=== PATIENT | female | born 1930 | race Caucasian/White ===

== ENCOUNTER 2017-02-27 09:54 | Emergency (ER) | payer OTHER ==
[~2017-02-27] VITALS: Ht 149.9 cm; Wt 63.5 kg
[~2017-02-27 09:54] MED LIST: AUGMENTIN 875 M1 TAB PO; NAPROSYN375 MG PO; TESSALON PERLE100 MG PO; TRAMADOL50 MG PO
[2017-02-27] MEDS ORDERED: CAPTOPRIL25 M1 PO (10:00)
[2017-02-27] MEDS ORDERED: CARVEDILOL3.125 M1 PO (10:00)
[2017-02-27] MEDS ORDERED: PRAVASTATIN SOD40 M2 PO (10:01)
--- NOTE | 2017-02-27 10:44 | ED AMS/SEIZURE/WEAK/DIZZY ---
History of Present Illness General Chief Complaint: Syncope and Near-Syncope Stated Complaint: NIC NEAR SYNCOPAL Source: patient, old records, EMS Exam Limitations: no limitations Vital Signs & Intake/Output Vital Signs & Intake/Output Vital Signs Date Time Temp Pulse Resp B/P B/P Pulse O2 O2 Flow FiO2 Mean Ox Delivery Rate 02/27 1403 96.4 80 18 135/63 92 Room Air 02/27 1158 96.7 77 18 135/63 93 Room Air 02/27 1013 95 02/27 0959 96.2 84 18 165/82 94 Room Air Allergies Coded Allergies: codeine (VOMITING 02/27/17) zolpidem (GI DISTRESS 02/27/17) Reconcile Medications Captopril 25 MG TABLET 1 TAB PO BID HEART (Reported) Carvedilol 3.125 MG TABLET 1 TAB PO BID HEART (Reported) Pravastatin Sodium 40 MG TABLET 1 TAB PO 1200 CHOLESTEROL (Reported) Triage Note: 86 YO FEMALE NIC FROM HOME. PT STATES SHE WAS BENDING OVER TO FEED HER CAT AND BECAME DIZZY AND NAUSEOUS. PT STATES SHE DID NOT FALL BUT HIT HER ARM ON A RAIL, NOTED WITH SMALL SKIN ABRASION TO R FOREARM, BLEEDING CONTROLLED. PT ALERT AND ORIENTED X4. Triage Nurses Notes Reviewed? yes HPI: Patient presents for evaluation of a near syncopal episode that occurred while at home just prior to arrival. Patient states she was feeding her cat and had just picked up the cat's bowl (the bowl is rather heavy) when she felt a spinning dizziness and the feeling that she was going to faint. She grabbed a countertop and was able to make it to a chair. She then called a nurse who was unable to evaluate her. She was instructed to go to the emergency department by the nurse. Patient states she feels well at present. She denies loss of consciousness. She did scrape the right side of her wrist. Past History Travel History Traveled to [place] past 21 day No Medical History Any Pertinent Medical History? 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 No Review of Systems Review of Systems Constitutional: Reports: no symptoms. EENTM: Reports: no symptoms. Respiratory: Reports: no symptoms. Cardiovascular: Reports: no symptoms. GI: Reports: no symptoms. Genitourinary: Reports: no symptoms. Musculoskeletal: Reports: no symptoms. Skin: Reports: see HPI. Neurological/Psychological: Reports: no symptoms. Hematologic/Endocrine: Reports: no symptoms. Immunologic/Allergic: Reports: no symptoms. All Other Systems: Reviewed and Negative Physical Exam Physical Exam General Appearance: SEE BELOW Comments: Gen.: Well-nourished, well-developed, no acute respiratory distress. Head: Normocephalic, atraumatic. Eyes: Normal inspection bilaterally Ears: Normal inspection bilaterally Nose: Normal inspection Throat/mouth : Moist mucosa Face: No droop Neck: Supple, full range of motion, no goiter, no JVD Heart: Regular rate and rhythm, no murmurs rubs or gallops Lungs: Clear to auscultation bilaterally with normal air entry Chest: Nontender Back: Normal range of motion Abdomen: Soft, nontender, nondistended, normal bowel sounds Extremities: Normal range of motion grossly, equal radial pulses, no cyanosis clubbing or edema Neurologic: Cranial nerves grossly intact, speech is clear, no focal neurologic deficits noted Skin: warm and dry Psychiatric: Calm, cooperative, no apparent delusions or hallucinations Core Measures ACS in differential dx? No CVA/TIA Diagnosis: No Severe Sepsis Present: No Septic Shock Present: No Progress Differential Diagnosis: arrythmia, anemia, CVA/stroke, dehydration, electrolyte imbalance, hypoglycemia, SINUS RHYTHM WITH A VENTRICULAR PACER AND LEFT BUNDLE BRANCH PATTERN. Plan of Care: Orders Procedure Date/time Status URINALYSIS 02/27 1109 Complete Saline Lock 02/27 1042 Active MISTAKE 02/27 1042 Active Telemetry/Employee Welfare Manager 02/27 1042 Active THYROID STIMULATING HORMONE 02/27 1042 Complete TROPONIN LEVEL 02/27 1042 Complete COMPREHENSIVE METABOLIC PANEL 02/27 1042 Complete CBC WITHOUT DIFFERENTIAL 02/27 1042 Complete EKG 02/27 0954 Active Laboratory Tests 02/27/17 1109: Urinalysis LIGHT H, Urine Color YEL, Urine Clarity CLEAR, Urine pH 6.5, Ur Specific Baldwin 1.010, Urine Protein NEG, Urine Ketones NEG, Urine Nitrite NEG, Urine Bilirubin NEG, Urine Urobilinogen 0.2, Ur Leukocyte Esterase NEG, Ur Microscopic SEDIMENT EXAMINED, Urine RBC 5-10 H, Urine WBC 3-5 H, Ur Epithelial Cells MOD H, Urine Bacteria MOD H, Urine Hemoglobin SMALL H, Urine Glucose NEG 02/27/17 1100: Anion Gap 12, Estimated GFR > 60, BUN/Creatinine Ratio 32.0 H, Glucose 101 H, Calcium 10.3 H, Total Bilirubin 0.6, AST 25, ALT 23, Alkaline Phosphatase 84, Troponin I 0.02, Total Protein 7.2, Albumin 3.7, Globulin 3.5, Albumin/Globulin Ratio 1.1, TSH 3.230, CBC w Diff MAN DIFF ORDERED, RBC 3.72 L, MCV 95.4, MCH 31.5 H, RDW 16.4 H, MPV 8.5, Gran % 45.6, Lymphocytes % 27.9, Monocytes % 21.0 H, Eosinophils % 4.5, Basophils % 1.0, Absolute Granulocytes 1.7, Absolute Lymphocytes 1.0 L, Absolute Monocytes 0.8 H, Absolute Eosinophils 0.2, Absolute Basophils 0, Platelet Estimate ADEQUATE, Hypochromic-Microcytic 1+, Anisocytosis 1+, PUBS MCHC 33.0 Diagnostic Imaging: Discussed w/RAD: Radiology Read. Radiology Impression: PATIENT: NICA ESPARZA PRESENT AGE: 86 PATIENT ACCOUNT NO: [id number] : 32 LOCATION: [facility] ORDERING PHYSICIAN: DIMITRY BARRETT MD SERVICE DATE: 02/27/17 EXAM TYPE: RAD - JOO-UMSJEIN-PMJXLYLK VIEWS EXAMINATIONS: ABDOMEN 2 VIEWS CLINICAL INFORMATION: Nausea, no bowel movement for 3 weeks. COMPARISON: 08/20/2012. TECHNIQUE: Supine and upright views of the abdomen are provided. FINDINGS: There is no evidence of intraperitoneal free air. Bowel gas pattern is nonspecific in appearance. The colon is stool containing, does not appear overly filled, the rectosigmoid appears relatively empty. Moderate atherosclerotic calcification. Osseous structures demonstrate normal bone mineral density without focal destructive or sclerotic lesions. There are degenerative changes in the lumbar spine most severe in the lower lumbar spine and in the bilateral hips. IMPRESSION: Unremarkable examination. DICTATED BY: CHILO CASTANON MD DATE/TIME DICTATED:1350 CUSHION GUM APPLICATOR:JODIE DATE/TIME TRANSCRIBED:02/27/171350 CONFIDENTIAL, DO NOT COPY WITHOUT APPROPRIATE AUTHORIZATION. <Electronically signed in Other Vendor System> SIGNED BY: CHILO CASTANON MD 02/27/17 1358 CXR Impression: PATIENT: NICA ESPARZA PRESENT AGE: 86 PATIENT ACCOUNT NO: [id number] : 32 LOCATION: [facility] ORDERING PHYSICIAN: DIMITRY BARRETT MD SERVICE DATE: 02/27/17 EXAM TYPE: RAD - XRY-PORTABLE CHEST XRAY EXAMINATION: XR PORTABLE CHEST CLINICAL INFORMATION: Recent CABG with near syncope. COMPARISON: 11/27/2015. TECHNIQUE: Portable AP view of the chest was obtained. FINDINGS: There are post median sternotomy changes with multiple sternal wires. A dual-lead pacer from a left-sided approach appears unchanged. The cardiomediastinal silhouette is otherwise unremarkable. Lung volumes are somewhat diminished with elevated left hemidiaphragm which was not visualized on the prior exam. Question diaphragmatic paralysis. The lungs and pleural spaces otherwise appear clear without evidence of congestion, consolidation, or significant appearing effusion or atelectasis. There is no evidence of pneumothorax or pulmonary edema. Included osseous structures appear largely unremarkable. IMPRESSION: Elevated left hemidiaphragm with post median sternotomy changes are new compared with the previous exam. DICTATED BY: CHILO CASTANON MD DATE/TIME DICTATED:02/27/171115 CUSHION GUM APPLICATOR:JODIE DATE/ TIME TRANSCRIBED:02/27/171115 CONFIDENTIAL, DO NOT COPY WITHOUT APPROPRIATE AUTHORIZATION. <Electronically signed in Other Vendor System> SIGNED BY: CHILO CASTANON MD 02/27/17 1122 Initial ED EKG: SINUS RHYTHM WITH A RATE OF 80 AND VENTRICULAR PACED COMPLEX/ LEFT BUNDLE BRANCH PATTERN Prior EKG: unchanged Comments: 02/27/2017 2:03:29 PM I updated Nica and her daughter a prior to the abdominal x -ray of her test results. I have discussed her case with Dr. Escobar who evaluated Nica in the emergency department. He feels comfortable with her returning home and following up with him in his office on Thursday. Patient's abdominal x-rays unremarkable so I will update them on this final test result. Departure Departure Disposition: HOME OR SELF CARE Condition: Stable Clinical Impression Primary Impression: Near syncope Referrals: SOY GARCIA,REUBEN Cullen (PCP/Family) Additional Instructions: Contact Dr. Escobar on Thursday for follow-up appointment. Maintained a good fluid intake. Consider MiraLAX [id number] to help move her bowels. Please notify your primary care doctor of this emergency department visit and treatment plan. Return if any concerns or sudden worsening. Please note that there might be incidental findings in your evaluation that are unrelated to the current emergency department visit. Please notify your primary care doctor about this emergency department visit in order to obtain and review all of the testing performed so that these incidental findings can be monitored as needed. If you had an x-ray performed, please understand that some fractures may not be seen on the initial set of x-rays. If your symptoms persist you might need a repeat set of x-rays to check for such a fracture. Thank you for choosing the [facility] Emergency Department for your care. It was a pleasure to serve you today. Dimitry Barrett M.D. [facility] Departure Forms: Customer Survey General Discharge Information
[2017-02-27 11:14] LABS: ABSOLUTE BASOPHIL COUNT 0 /CUMM (0.0-0.2); ABSOLUTE EOSINOPHIL COUNT 0.2 /CUMM (0.0-0.7); ABSOLUTE GRANULOCYTE CT 1.7 /CUMM (1.4-6.5); ABSOLUTE MONOCYTE COUNT 0.8 /CUMM (0.10-0.60); EOSINOPHIL % 4.5 % (0-5); GRANULOCYTE % 45.6 % (42.2-75.2); HEMATOCRIT 35.5 % (37-47); MEAN CORPUSCULAR HGB 31.5 PG (27.0-31.0); MEAN CORPUSCULAR VOLUME 95.4 FL (81.0-99.0); MEAN PLATELET VOLUME 8.5 FL (7.4-10.4); PLATELET COUNT 212 /CUMM (130-400); RBC DISTRIBUTION WIDTH 16.4 % (11.5-14.5); RED BLOOD CELL CT 3.72 /CUMM (4.20-5.40); WHITE BLOOD CELL COUNT 3.7 /CUMM (4.8-10.8)
--- NOTE | 2017-02-27 11:22 | RADIOLOGY REPORT ---
EXAMINATION: XR PORTABLE CHEST CLINICAL INFORMATION: Recent CABG with near syncope. COMPARISON: 11/27/2015. TECHNIQUE: Portable AP view of the chest was obtained. FINDINGS: There are post median sternotomy changes with multiple sternal wires. A dual-lead pacer from a left-sided approach appears unchanged. The cardiomediastinal silhouette is otherwise unremarkable. Lung volumes are somewhat diminished with elevated left hemidiaphragm which was not visualized on the prior exam. Question diaphragmatic paralysis. The lungs and pleural spaces otherwise appear clear without evidence of congestion, consolidation, or significant appearing effusion or atelectasis. There is no evidence of pneumothorax or pulmonary edema. Included osseous structures appear largely unremarkable. IMPRESSION: Elevated left hemidiaphragm with post median sternotomy changes are new compared with the previous exam.
--- NOTE | 2017-02-27 13:58 | RADIOLOGY REPORT ---
EXAMINATIONS: ABDOMEN 2 VIEWS CLINICAL INFORMATION: Nausea, no bowel movement for 3 weeks. COMPARISON: 08/20/2012. TECHNIQUE: Supine and upright views of the abdomen are provided. FINDINGS: There is no evidence of intraperitoneal free air. Bowel gas pattern is nonspecific in appearance. The colon is stool containing, does not appear overly filled, the rectosigmoid appears relatively empty. Moderate atherosclerotic calcification. Osseous structures demonstrate normal bone mineral density without focal destructive or sclerotic lesions. There are degenerative changes in the lumbar spine most severe in the lower lumbar spine and in the bilateral hips. IMPRESSION: Unremarkable examination.
[2017-02-27 14:03] VITALS: BP 135/63
[2017-02-27] MEDS ORDERED: MACROBID 100 M100 MG PO (14:44)
== END 2017-02-27 15:06 ==
LOC: ERH 09:54
PROVIDERS: Emergency Medicine
DX: R55 Syncope and collapse (principal)
CPT/HCPCS: 74020; 81001; 93005; 93010

== ENCOUNTER 2018-07-14 13:13 | Emergency (ER) | payer OTHER ==
[~2018-07-14] VITALS: Ht 124.5 cm; Wt 68.0 kg
[~2018-07-14 13:13] MED LIST changes: +CAPTOPRIL25 M1 PO; +CARVEDILOL3.125 M1 PO; +MACROBID 100 M100 MG PO; +PRAVASTATIN SOD40 M2 PO
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
[2018-07-14] MEDS ORDERED: ASPIRIN81 M4 PO (14:25)
[2018-07-14] MEDS ORDERED: VITAMIN D2000 UNI1 PO (14:26)
--- NOTE | 2018-07-14 15:32 | RADIOLOGY REPORT ---
EXAMINATION: XR KNEE, RIGHT CLINICAL INFORMATION: Knee pain COMPARISON: None TECHNIQUE: Four views of the right knee. FINDINGS: Alignment is normal. The components of the total knee arthroplasty are in satisfactory position. No hardware loosening, periprosthetic fracture or knee joint effusion. Atherosclerotic calcification of femoral, popliteal and peripheral leg vessels. IMPRESSION: - No acute osseous injury at the right knee. - The components of the total knee arthroplasty exhibit satisfactory position and alignment.
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
[2018-07-14 16:22] VITALS: BP 158/64
== END 2018-07-14 16:26 ==
LOC: ERH 13:13
DX: M54.2 Cervicalgia (principal); M25.561 Pain in right knee; I10 Essential (primary) hypertension; Z87.891 Personal history of nicotine dependence; V89.2XXA Person injured in unspecified motor-vehicle accident, traffic, initial encounter; Y92.410 Unspecified street and highway as the place of occurrence of the external cause
CPT/HCPCS: 73562-RT